=== PATIENT | female | born 1960 | race Caucasian/White ===

== ENCOUNTER 2024-03-31 20:32 | Emergency (ER) | payer MEDICARE, OTHER, SELFPAY ==
[2024-03-31 20:42] VITALS: BP 127/81
--- NOTE | 2024-04-01 00:19 | ED.GENMED ---
History of Present Illness
General
Chief Complaint: Musculo-Skeletal Complaint
Source: patient
Exam Limitations: none
Time Seen by Provider: 04/01/24 00:07
Travel History
Have you had any contact with someone who has COVID-19?: No
Do you have any symptoms of coronavirus? Fever > 100 degrees, chills, cough, shortness of breath, sore throat, loss of taste or smell, muscle aches, or headache?: No
History of Present Illness
History of Present Illness:
This is a 64 year old female that comes in with c/o left foot pain. States that her left foot was run over by an electric wheelchair. States that her foot got twisted and crushed. States that this happened on Saturday. Patient then went to on
Saturday. State that she was told to come here but her horse was sick and he is now home. States that she just has not been feeling good. Denies any fever, chills, chest pain, SOB, abd pain, nausea, vomiting, diarrhea, headache, dizziness, urinary
burning.
Past History
Past History
ED Past Medical History: HTN, Hypercholesterolemia, Other (TBI, Pancreatitis, Lyme disease, Kidney disease) and Other (Chronic pain)
ED Past Surgical History: Gynecological (Oophorectomy), Orthopedic (Left femur repair) and Other (Gastric sleeve, Partial pancreas removed. Spleenectomy)
Patient has exhibited threatening behavior?: No
Social History
Tobacco: Former smoker
Alcohol: None
Drug: None
Personal: Single
Living: alone
Employment: Not employed
Family History
Family History: Other (Sister with diabetes mother with multiple myeloma)
Review of Systems
Review of Systems
All Other Systems: ROS reviewed and negative except as documented in HPI and ROS
Constitutional: Reports no symptoms; Denies fever or chills
EENT: Reports no symptoms
Respiratory: Reports no symptoms; Denies cough or trouble breathing
Cardiac: Reports no symptoms; Denies chest pain
ABD/GI: Reports no symptoms; Denies abdominal pain, nausea, vomiting or diarrhea
: Reports no symptoms
Musculoskeletal: Reports other (left foot pain and swelling. )
Skin: Reports no symptoms
Neurological: Reports no symptoms; Denies dizzy or headache
Psychiatric: Reports no symptoms
Phy Exam
General Physical Exam
General Presentation: no apparent distress
General age: appears stated age
General Skin: warm and dry
General Habitus: normal
General Mental: alert
General Hydration: appears well hydrated
ENT Exam
ENT Exam: TM's normal, pharynx normal and neck supple
Eye Exam
Eye Exam: EOMI
Cardiovascular Exam
Cardiovascular Exam: regular rate/rhythm and normal peripheral pulses
Pulmonary Exam
Pulmonary Exam: lungs clear, no respiratory distress, no rales, chest non tender, no crackles, no rhonchi, no wheezing and no cough
Musculoskeletal Exam
Musculoskeletal Exam: full ROM and edema (Of both feet into the lower legs +1pitting. )
Skin Exam
Skin Exam: other (Contusion noted on the left heel and into the planter aspect of the foot. Toes red on both feet with some cyanotic area's noted. )
Psychiatric Exam
Psychiatric Exam: normal mood/affect
Course
Orders/Labs/Results
Orders:
Orders
03/31/24 22:33
CBC/With Diff [Complete Blood Count/With Diff] Urgent
CMP [Comprehensive Metabolic Panel] Urgent
04/01/24 00:00
CR Ankle - Left Min 3 Views Urgent
Reason For Exam: pain, swelling, twisted last week
04/01/24 00:18
Foot, Left 3 View [CR Foot - Left Min 3 Views] Urgent
Comment:
Reason For Exam: Pain swelling
US Periph Venous LOWER Ext Govind Urgent
Comment:
Reason For Exam: Swelling, Redness feet
04/01/24 00:33
Lactic Acid Urgent
Uric Acid Urgent
04/01/24 01:14
Prothrombin Time Urgent
04/01/24 02:58
Doxycycline [Vibramycin] 100 mg PO NOW STA
Abnormal Lab Results
04/01/24
00:33
WBC 16.2 H 10^3/uL
(4.8-10.8)
RBC 4.18 L 10^6/uL
(4.20-5.40)
MCV 101.0 H fL
(81.0-99.0)
MCH 33.7 H pg
(27.0-31.0)
MPV 12.3 H fL
(7.4-10.4)
Abs Immat Gran (auto) 0.2 H 10^3/uL
(0-0.05)
Absolute Neuts (auto) 11.6 H 10^3/uL
(1.4-6.5)
Absolute Monos (auto) 1.7 H 10^3/uL
(0.1-0.6)
Immature Gran % 1.4 H %
(0-0.5)
Lymphocytes % 14.3 L %
(20.5-51.1)
Monocytes % 10.5 H %
(1.7-9.3)
BUN 36 H mg/dl
(7-17)
Creatinine 1.7 H mg/dL
(0.6-1.0)
Glucose 126 H mg/dl
(70-99)
Uric Acid 8.6 H mg/dl
(2.5-6.2)
04/01/24 00:33
04/01/24 00:33
Leukocytosis, Anemia, Chronic renal insufficiency, Glucose nonfasting, Uric acid elevated to 8.6 Lactic acid normal at 1.0
Vital Signs
Initial and Last Documented VS:
Initial Vital Signs
Temp Pulse Resp BP Pulse Ox
98.0 F 65 18 127/81 94
03/31/24 20:42 03/31/24 20:42 03/31/24 20:42 03/31/24 20:42 03/31/24 20:42
Last Documented Vital Signs
Temp Pulse Resp BP Pulse Ox
98.0 F 65 18 127/81 94
03/31/24 20:42 03/31/24 20:42 03/31/24 20:42 03/31/24 20:42 03/31/24 20:42
MDM/Problems Addressed
Differential Diagnosis Includes:
DVT, Foot fracture,
MDM/Problems Addressed:
This is a 64 year old female that comes in with c/o left foot swelling and pain. States that she was run over by an electric wheelchair. State that she has not been walking for the past 6 weeks.
Will get labs, US and X-rays.
Back over to see patient. Explained that her blood work shows that her WBC are elevated and that she is anemia. Patient has chronic kidney disease, Uric acid is elevated and her US is negative for DVT. Patient does have redness in the distal lower
leg with increased warm. Feels that patient needs to stay but she says she has a horse at home that she has to watch for Colic. Dr. Schulz to see patient.
Seen by Dr. Schulz. He is in agreement that the patient should stay. Patient again refused. Will place patient on antibiotics. Patient follow up with the family doctor in the next 2-3 days. Patient to increase her water intake to 8-8oz glasses
daily. Tylenol for any fever or pain. Return with any concerns.
Chronic conditions affecting care:
NA
Acute Exacerbation and/or Progression of Chronic Illness:
NA
*Radiology
Radiology exam reviewed: preliminary read by ED provider (Left foot-Negative for fractures Left ankle-Negative for fractures) and other (US- Negative for DVT)
*Pulse Oximetry
Patient hypoxic: no
*EKG
Interpreted by ED Provider?: NA
Rate: EKG- N/A
*Technical Account Representative Interpretation
Rate: Technical Account Representative- N/A
*Critical Care Note
Total Time (30-74mins, 75-104mins- exclusive of procedures): Not Applicable
ED Attending Note
-
Portions of this chart may have been created with voice recognition software.� Occasional wrong word or��sound alike� substitutions may have occurred due to the inherent limitations of voice recognition software.
Discharge Plan
Departure
Patient Disposition: Home (Routine Discharge)
Date of Disposition: 04/01/24
Time of Disposition: 03:01
Patient with high blood pressure during this ER visit?: No
Condition: Good
Covid-19: Not Applicable
Discharge Problem:
Cellulitis of the left foot and lower le
Instructions: Cellulitis (Skin Infection), Adult ED
Prescriptions:
New
doxycycline hyclate 100 mg capsule
100 mg PO BID Qty: 19 0RF
No Action
dextroamphetamine sulfate [Dexedrine Spansule] 15 MG capsule, extended release
30 mg PO BID
Patient Comments:
05/24/2022: last filled 05/21/22, 120 tabs for 30 days from [id number]
amlodipine 5 MG tablet
5 mg PO Daily
metoprolol succinate 25 MG tablet extended release 24 hr
25 mg PO DAILY
hydrocodone-acetaminophen 5-325 mg Tablet
1 tab PO BID PRN (Reason: moderate pain)
Patient Comments:
05/24/2022: last filled 04/24/22, 60 tabs for 30 days from [id number]
methylprednisolone [Medrol] 4 mg Tablet
4 mg PO Daily
simethicone [Gas Relief 80 (simethicone)] 80 mg Tablet,Chewable
80 mg PO TIDPRN PRN (Reason: gas pain) 20 Days Qty: 60 0RF
ondansetron 4 mg tablet,disintegrating
4 mg PO Q8H PRN (Reason: nausea and vomiting) 10 Days Qty: 30 0RF
rosuvastatin 5 mg Tablet
5 mg PO Q48H
cefdinir 300 mg Capsule
300 mg PO Q12 Qty: 14 0RF
epinephrine 0.1 mg/0.1 mL auto-injector
0.1 mg IM PRN PRN (Reason: hypersensitivity reaction) Qty: 1 0RF
Referrals:
Beverly Melara DO [Family Provider] - Follow up in 2-3 days
Activity Restrictions/Additional Instructions:
As discussed, srikanth blood work shows that your WBC are elevated. This means that your body is trying to fight an infection. You are also anemia, and have chronic renal insufficiency. Your uric acid is elevated. Your X-ray of the foot and ankle are
negative for any fracture or dislocation. Your Ultrasound is negative for any blood clots. This looks to be a cellulitis. You have been given your first dose of antibiotic here and a prescription has been sent to your Pharmacy. Please take as
directed. Follow up with the family doctor for recheck in the next 2-3 days. IF YOU HAVE FEVER, INCREASED REDNESS, PAIN OR YOU HAVE ANY OTHER CONCERNS PLEASE RETURN TO THE EMERGENCY ROOM.
Interventions
Interventions:
*Risk Screen - Suicide Last Done: 04/01/24 00:38
*General Assessment Last Done: 04/01/24 00:38
*ED COVID-19 Vaccine History Last Done: 04/01/24 00:38
ED-Musculoskeletal Assessment Last Done: 04/01/24 00:37
Discharge Date and Time
Print Language: NICARAGUAN
[2024-04-01 01:02] LABS: % Basophils 0.6 % (0-2); % Eosinophils 1.5 % (0-6); % Immature Granulocytes 1.4 % (0-0.5); % Lymphocytes 14.3 % (20.5-51.1); % Monocytes 10.5 % (1.7-9.3); % Neutrophils 71.7 % (42.2-75.2); Absolute Basophils 0.1 10^3/uL (0-0.2); Absolute Eosinophils 0.3 10^3/uL (0-0.7); Absolute Immature Granulocytes 0.2 10^3/uL (0-0.05); Absolute Lymphocytes 2.3 10^3/uL (1.2-3.4); Absolute Monocytes 1.7 10^3/uL (0.1-0.6); Absolute Neutrophils 11.6 10^3/uL (1.4-6.5); Hematocrit 42.2 % (37.0-47.0); Hemoglobin 14.1 g/dL (12.0-16.0); Mean Corp Hgb Conc. 33.4 g/dL (33.0-37.0); Mean Corpuscular Hgb 33.7 pg (27.0-31.0); Mean Platelet Volume 12.3 fL (7.4-10.4); Nucleated Red Blood Cells % 0 %; Platelet Count 331 10^3/uL (130-400); Red Blood Cell Count 4.18 10^6/uL (4.20-5.40); Red Cell Dist. Width 13.1 % (11.5-14.5); White Blood Cell Count 16.2 10^3/uL (4.8-10.8)
[2024-04-01 01:18] LABS: ALT (SGPT) 16 U/L (0-35); AST (SGOT) 22 U/L (14-36); Albumin 3.9 g/dl (3.5-5.0); Alkaline Phosphatase 105 U/L (38-126); Blood Urea Nitrogen 36 mg/dl (7-17); Calcium 9.3 mg/dl (8.4-10.2); Carbon Dioxide 22 mmol/L (22-30); Chloride 106 mmol/L (98-107); Glucose 126 mg/dl (70-99); Potassium 4.4 mmol/L (3.5-5.1); Sodium 139 mmol/L (135-145); Total Bilirubin 0.5 mg/dl (0.2-1.3); Total Protein 6.7 g/dl (6.3-8.2); Uric Acid 8.6 mg/dl (2.5-6.2); eGFR 32.87
[2024-04-01 03:15] LABS: INR 1.05; PT 13.5 Sec (11.4-14.6)
[2024-04-01] MEDS: VIBRAMYCIN 100 MG PO (03:22)
[2024-04-01 03:41] VITALS: BP 130/89
== END 2024-04-01 03:43 | disposition home or self-care (01) ==
LOC: EMR 20:32
PROVIDERS: Clinical Nurse Specialist Family Health; Emergency Medicine; EMERGENCY PHYSICIAN Student in an Organized Health Care Education/Training Program; FAMILY PHYSICIAN Internal Medicine
DX: L03.116 Cellulitis of left lower limb (principal); M79.662 Pain in left lower leg; I12.9 Hypertensive chronic kidney disease with stage 1 through stage 4 chronic kidney disease, or unspecified chronic kidney disease; N18.9 Chronic kidney disease, unspecified; G89.29 Other chronic pain; E78.00 Pure hypercholesterolemia, unspecified
CPT/HCPCS: 99284; 73610; 73630; 80053; 83605; 84550; 85025; 85610; 93970

== ENCOUNTER → 2024-07-24 12:49 | Outpatient (REF) | payer MEDICARE, OTHER, SELFPAY | LOC: RAD 12:49 | PROVIDERS: ATTENDING PHYSICIAN Surgery Vascular Surgery; FAMILY PHYSICIAN Internal Medicine | DX: I71.40 Abdominal aortic aneurysm, without rupture, unspecified (principal) | CPT/HCPCS: 76770 ==

== ENCOUNTER → 2024-08-27 13:32 | Outpatient (REF) | payer MEDICARE, OTHER, SELFPAY | LOC: RAD 13:32 | PROVIDERS: ATTENDING PHYSICIAN Internal Medicine | DX: Z87.891 Personal history of nicotine dependence (principal) | CPT/HCPCS: 71271 ==

== ENCOUNTER 2024-09-23 06:19 | Day surgery (SDC) | payer MEDICARE, OTHER, SELFPAY | END 2024-09-23 12:36 | disposition home or self-care (01) | LOC: GI 06:19 | PROVIDERS: ATTENDING PHYSICIAN Internal Medicine Gastroenterology | DX: Z12.11 Encounter for screening for malignant neoplasm of colon (principal); K57.30 Diverticulosis of large intestine without perforation or abscess without bleeding; K64.8 Other hemorrhoids; D12.0 Benign neoplasm of cecum; K62.1 Rectal polyp; Z86.0100 Personal history of colon polyps, unspecified | CPT/HCPCS: 45380; 88305 ==

== ENCOUNTER → 2024-11-11 14:03 | Outpatient (REF) | payer MEDICARE, OTHER, SELFPAY | LOC: WDC 14:03 | PROVIDERS: ATTENDING PHYSICIAN Internal Medicine | DX: Z12.31 Encounter for screening mammogram for malignant neoplasm of breast (principal) | CPT/HCPCS: 77063; 77067 ==

== ENCOUNTER → 2025-01-25 13:03 | Outpatient (REF) | payer MEDICARE, OTHER, SELFPAY | LOC: RAD 13:03 | PROVIDERS: ATTENDING PHYSICIAN Internal Medicine | DX: R22.1 Localized swelling, mass and lump, neck (principal); R22.41 Localized swelling, mass and lump, right lower limb | CPT/HCPCS: 93971 ==

== ENCOUNTER → 2025-02-26 12:26 | Outpatient (REF) | payer MEDICARE, OTHER, SELFPAY | LOC: RAD 12:26 | PROVIDERS: FAMILY PHYSICIAN Internal Medicine | DX: M54.16 Radiculopathy, lumbar region (principal); M54.50 Low back pain, unspecified; M43.16 Spondylolisthesis, lumbar region | CPT/HCPCS: 72114 ==

== ENCOUNTER → 2025-05-13 11:53 | Outpatient (REF) | payer MEDICARE, OTHER, SELFPAY | LOC: PAVMRI 11:53 | PROVIDERS: ATTENDING PHYSICIAN Orthopaedic Surgery | DX: M76.02 Gluteal tendinitis, left hip (principal); M54.16 Radiculopathy, lumbar region; M54.50 Low back pain, unspecified; M43.16 Spondylolisthesis, lumbar region | CPT/HCPCS: 72148; 73721 ==